=== PATIENT | male | born 1995 | race Caucasian/White ===

== ENCOUNTER 2018-06-02 15:52 | Emergency (ER) | payer OTHER ==
[2018-06-02 15:56] VITALS: BP 147/73; TEMP 97.9; BMI 27.4
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
== END 2018-06-02 17:38 | disposition home or self-care (01) ==
LOC: ED 15:52
DX: S86.812A Strain of other muscle(s) and tendon(s) at lower leg level, left leg, initial encounter (principal); S86.811A Strain of other muscle(s) and tendon(s) at lower leg level, right leg, initial encounter; X50.1XXA Overexertion from prolonged static or awkward postures, initial encounter
CPT/HCPCS: 99283

== ENCOUNTER 2018-08-16 04:14 | Emergency (ER) ==
[2018-08-16 04:20] VITALS: BP 134/75; TEMP 98.2; BMI 25.0
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
[2018-08-16] MEDS ORDERED: TENIVAC IM ONE (04:43)
== END 2018-08-16 04:54 | disposition home or self-care (01) ==
LOC: ED 04:14
DX: S51.812A Laceration without foreign body of left forearm, initial encounter (principal); S51.811A Laceration without foreign body of right forearm, initial encounter; W45.8XXA Other foreign body or object entering through skin, initial encounter; F17.210 Nicotine dependence, cigarettes, uncomplicated
CPT/HCPCS: 36415; 80307; 90471; 90714; 99283

== ENCOUNTER 2018-08-28 04:45 | Outpatient (CLI) ==
[2018-08-28 05:00] VITALS: BMI 26.6
== END 2018-08-28 04:51 | disposition critical access hospital (66) ==
LOC: AMBL 04:45
PROVIDERS: ATTEND Family Medicine
DX: T78.40XA Allergy, unspecified, initial encounter (principal)

== ENCOUNTER 2018-08-28 04:55 | Emergency (ER) ==
[2018-08-28 05:00] VITALS: BP 120/72; TEMP 97.8; BMI 26.6
[2018-08-28] MEDS ORDERED: EPINEPHRINE 1 MG/ML AMP IM STA (05:02)
[2018-08-28] MEDS ORDERED: CLARITIN PO STA (05:08)
[2018-08-28] MEDS ORDERED: ZANTAC PO STA (05:08)
[2018-08-28] MEDS ORDERED: DECADRON 4 MG/ML SDV IM STA (05:08)
--- NOTE | 2018-08-28 05:09 | ED.PDOC ---
General ED Provider: Dr. RYAN REYES Chief Complaint: Allergic Reaction Stated Complaint: Hives on face and torso. Moderate swelling of face/lips Time Seen by Physician: 05:09 Mode of Arrival: Ambulance Information Source: Patient, EMT Primary Care Provider: MARIANELA REVELES Nursing and Triage Documentation Reviewed and Agree: Yes Does patient meet sepsis criteria?: No System Inflammatory Response Syndrome: Not Applicable Sepsis Protocol: For patient's 13 years and over: Temp is 96.8 and below OR 101 and greater Pulse >90 BPM Resp >20/minute Acutely Altered Mental Status Are patient's symptoms suggestive of a new infection, such as: -Pneumonia -Skin, Soft Tissue -Endocarditis -UTI -Bone, Joint Infection -Implantable Device -Acute Abdominal Infection -Wound Infection -Meningitis -Blood Stream Catheter Infection -Unknown Skin Complaint Exam - Skin Rash/Itching Complaint/Exam Onset/Duration: 2 hours ago Symptoms Are: Still present Initial Severity: Severe Current Severity: Severe Location: Face Torsor and lip swelling Prior Treatment: none Aggravating: Reports: None Alleviating: Reports: None Associated Signs and Symptoms: Denies: Difficulty breathing, Fever, Chills Skin Findings: Present: Urticaria Differential Diagnoses: Allergic Reaction, Contact Dermatitis Review of Systems - Review Of Systems Constitutional: Reports: No symptoms Eyes: Reports: No symptoms Ears, Nose, Mouth, Throat: Reports: Mouth swelling Respiratory: Reports: No symptoms Cardiac: Reports: No symptoms GI: Reports: No symptoms : Reports: No symptoms Musculoskeletal: Reports: No symptoms Skin: Reports: Rash, Other (Lip swelling ) Neurological: Reports: Anxiety Endocrine: Reports: No symptoms Hematologic/Lymphatic: Reports: No symptoms All Other Systems: Reviewed and Negative Past Medical History - Past Medical History Previously Healthy: Yes Endocrine: Reports: None Cardiovascular: Reports: None Respiratory: Reports: None Hematological: Reports: None Gastrointestinal: Reports: None Genitourinary: Reports: None Neuro/Psych: Reports: None Musculoskeletal: Reports: None Cancer: Reports: None - Surgical History General Surgical History: Reports: None - Family History Family History: Reports: None - Social History Smoking Status: Current every day smoker, Heavy tobacco smoker Hx Substance Use: No Alcohol Screening: None - Immunizations Tetanus Shot up to Date: Yes Physical Exam - Physical Exam Appearance: Ill-appearing Ill-appearing: Moderate Pain Distress: None Eyes: SAMANTHA ENT: Ears normal, Nose normal Neck: Supple Respiratory: Airway patent, Breath sounds clear, Breath sounds equal, Respirations nonlabored Cardiovascular: RRR Skin: Warm, Dry Neurological: Sensation intact, Motor intact, Reflexes intact, Cranial nerves intact, Alert, Oriented Psychiatric: Anxious Re-Evaluation - Re-Evaluation Time of Re-Evaluation: 05:56 Status: Improved Lungs: Clear Skin: Other (Rash going away.) Neuro: Alert and Oriented X3 Critical Care Note - Critical Care Note Total Time (mins): 0 Course - Course Orders, Labs, Meds: Orders Category Date Time Status Dexamethasone 4 mg/ml Inj [Decadron 4 mg/ml Sdv] MEDS 08/28/18 05:08 Discontinued 8 mg IM ONCE STA Diphenhydramine HCl [Benadryl] MEDS 08/28/18 05:55 Stat 50 mg PO ONCE STA Epinephrine Amp [Epinephrine 1 mg/ml Amp] MEDS 08/28/18 05:02 Discontinued 0.4 mg IM ONCE STA Loratadine [Claritin] MEDS 08/28/18 05:08 Discontinued 10 mg PO ONCE STA Ranitidine HCl [Zantac] MEDS 08/28/18 05:08 Discontinued 300 mg PO ONCE STA Medications Discontinued Medications Generic Name Dose Route Start Last Admin Trade Name Freq PRN Reason Stop Dose Admin Dexamethasone Sodium Phosphate 8 mg 08/28/18 05:08 08/28/18 05:16 Decadron 4 Mg/Ml Sdv IM 08/28/18 05:09 8 mg ONCE STA Administration Diphenhydramine HCl 50 mg 08/28/18 05:55 Benadryl PO 08/28/18 05:56 ONCE STA Epinephrine HCl 0.4 mg 08/28/18 05:02 08/28/18 05:16 Epinephrine 1 Mg/Ml Amp IM 08/28/18 05:03 0.4 mg ONCE STA Administration Loratadine 10 mg 08/28/18 05:08 08/28/18 05:16 Claritin PO 08/28/18 05:09 10 mg ONCE STA Administration Ranitidine HCl 300 mg 08/28/18 05:08 08/28/18 05:15 Zantac PO 08/28/18 05:09 300 mg ONCE STA Administration Vital Signs: Temp Pulse Resp BP Pulse Ox 08/28/18 04:56 97.8 F 88 16 120/72 97 Departure - Departure Time of Disposition: 06:15 Disposition: HOME SELF-CARE Discharge Problem: Anaphylactic reaction Qualifiers: Encounter type: initial encounter Qualified Code(s): T78.2XXA - Anaphylactic shock, unspecified, initial encounter Instructions: Anaphylaxis (ED) Condition: Stable Pt referred to PMD for follow-up: Yes IPMP verified?: No Additional Instructions: use epipen as needed then come to the ER with you have an Allergic reaction Follow up with PCP in 3 days Prescriptions: Epinephrine 0.15 mg IM ONCE #1 ml Prednisone 20 mg PO DAILYWM #5 tablet Allergies/Adverse Reactions: Allergies No Known Allergies Allergy (Verified 08/16/18 04:18) Home Medications: Ambulatory Orders Epinephrine 0.15 mg IM ONCE #1 ml 08/28/18 Prednisone 20 mg PO DAILYWM #5 tablet 08/28/18 Disposition Discussed With: Patient, Family
[2018-08-28] MEDS ORDERED: BENADRYL PO STA (05:55)
== END 2018-08-28 06:30 | disposition home or self-care (01) ==
LOC: ED 04:55
DX: T78.2XXA Anaphylactic shock, unspecified, initial encounter (principal); F17.210 Nicotine dependence, cigarettes, uncomplicated
CPT/HCPCS: 96372; 99282

== ENCOUNTER 2018-09-11 23:27 | Emergency (ER) ==
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
[2018-09-11] MEDS ORDERED: LACTATED RINGERS 1,000 ML IV STA (23:31)
[2018-09-11 23:51] VITALS: BP 138/100; TEMP 98.6; BMI 29.0
[2018-09-12] MEDS ORDERED: ZOFRAN 4 MG/2 ML IVP STA (00:49)
[2018-09-12] MEDS ORDERED: ZOFRAN 4 MG/2 ML ONE (00:50)
== END 2018-09-12 00:40 | disposition short-term general hospital (02) ==
LOC: ED 23:27
DX: S09.90XA Unspecified injury of head, initial encounter (principal); R41.3 Other amnesia; W22.8XXA Striking against or struck by other objects, initial encounter; F17.210 Nicotine dependence, cigarettes, uncomplicated
CPT/HCPCS: 96360; 99285